=== PATIENT | male | born 1970 | race Caucasian/White ===

== ENCOUNTER 2018-02-07 01:06 | Outpatient (CLI) | payer OTHER, SELFPAY ==
[2018-02-07 10:23] LABS: Cholesterol 188 mg/dL (50-200); Glucose 95 mg/dL (70-100); HDL Cholesterol 47 mg/dL (40-60); LDL CHOLESTEROL 121 mg/dL (<100); Triglyceride 125 mg/dL (30-150)
== END 2018-02-07 01:26 ==
PROVIDERS: PCP Family Medicine; Visit Provider Family Medicine
DX: Z00.00 Encounter for general adult medical examination without abnormal findings (principal); Z13.220 Encounter for screening for lipoid disorders; Z13.1 Encounter for screening for diabetes mellitus
CPT/HCPCS: 36415; 80061; 82947; 83721

== ENCOUNTER 2020-02-14 07:52 | Outpatient (CLI) | payer OTHER, SELFPAY ==
[2020-02-18 22:35] LABS: Patient Race White; SARS-CoV-2 RNA Undetected (Undetected); SARS-CoV-2 Specimen Source Nasal
== END 2020-02-14 08:12 ==
PROVIDERS: PCP Family Medicine; Visit Provider Family Medicine
DX: Z11.59 Encounter for screening for other viral diseases (principal)
CPT/HCPCS: U0003

== ENCOUNTER 2020-10-06 19:46 | Outpatient (REF) | payer OTHER, SELFPAY ==
[2020-10-08 14:22] LABS: COVID-19 RT-PCR UVMMC Result Negative (Negative)
== END 2020-10-06 19:47 | disposition home or self-care (01) ==
LOC: LBN 19:46
PROVIDERS: PCP Family Medicine; Visit Provider Physician Assistant
DX: J02.9 Acute pharyngitis, unspecified (principal); N39.0 Urinary tract infection, site not specified; Z20.822 Contact with and (suspected) exposure to COVID-19
CPT/HCPCS: U0003; 87070; 87086

== ENCOUNTER 2020-10-07 16:19 | Outpatient (CLI) | payer OTHER, SELFPAY ==
[2020-10-08 10:47] LABS: Lyme Ab w Rflx to Lyme Confirm Negative (Negative)
[2020-10-09 16:07] LABS: Anaplasma phagocytophilum Negative (Negative); B. miyamotoi PCR Negative (Negative); Babesia divergens/MO-1 Negative (Negative); Babesia duncani Negative (Negative); Babesia microti Negative (Negative); Ehrlichia chaffeensis Negative (Negative); Ehrlichia ewingii/canis Negative (Negative); Ehrlichia muris eauclairensis Negative (Negative)
== END 2020-10-07 16:20 | disposition home or self-care (01) ==
LOC: LBO 16:19
PROVIDERS: PCP Family Medicine; Visit Provider Physician Assistant
DX: R50.9 Fever, unspecified (principal)
CPT/HCPCS: 36415; 87040; 87798; 86618

== ENCOUNTER 2022-07-15 08:53 | Outpatient (CLI) | payer OTHER, SELFPAY ==
[2022-07-15 12:33] LABS: Calculated LDL 135 mg/dL (<100); Cholesterol 202 mg/dL (<200); Glucose 98 mg/dL (74-106); HDL Cholesterol 50 mg/dL (40-60); Triglyceride 88 mg/dL (<150)
[2022-07-16 20:24] LABS: PSA, Screening 0.8 ng/mL (<=3.5)
== END 2022-07-15 08:54 | disposition home or self-care (01) ==
LOC: LOS 08:53
PROVIDERS: PCP Family Medicine; Referring Provider Family Medicine; Visit Provider Family Medicine
DX: E78.5 Hyperlipidemia, unspecified (principal); R73.9 Hyperglycemia, unspecified; Z12.5 Encounter for screening for malignant neoplasm of prostate
CPT/HCPCS: 36415; 80061; 82947; 84153

== ENCOUNTER 2024-09-06 08:29 | Outpatient (CLI) | payer OTHER, SELFPAY ==
[2024-09-21 12:17] LABS: Testosterone, Free 11.9 ng/dL (4.06-15.6); Testosterone, Total 461 ng/dL (240-950)
== END 2024-09-06 08:30 | disposition home or self-care (01) ==
LOC: LOS 08:29
PROVIDERS: PCP Family Medicine; Referring Provider Family Medicine; Visit Provider Family Medicine
DX: Z00.00 Encounter for general adult medical examination without abnormal findings (principal)
CPT/HCPCS: 36415; 84402; 84403